=== PATIENT | female | born 1950 | race African-American/Black ===

== ENCOUNTER 2021-11-26 10:53 | Day surgery (SDC) | payer MEDICARE, OTHER ==
[2021-11-26] MEDS ORDERED: LIDOCAINE HCL 2% 100 MG/5 ML IJ ONE (10:54)
[2021-11-26] MEDS ORDERED: Decadron 4 MG INJ IV ONE (10:54)
[2021-11-26] MEDS ORDERED: DIPRIVAN 200 MG/20 ML IV ONE (13:04)
[2021-11-26] MEDS ORDERED: Lactated Ringers 1,000 ML IV ONE (13:24)
--- NOTE | 2021-11-26 14:39 | XRAY ---
Indication: Left C2-C5 MBB. Intraoperative fluoroscopy provided for 45 seconds. 4 digital spot images submitted for interpretation demonstrates posterior needle tips projecting over the expected left C2-C5 nerve roots. Correlate with intraoperative findings/report.
--- NOTE | 2021-11-26 15:08 | XRAY ---
45 seconds fluoroscopy time in surgery for left C2-C5 MBB.
== END 2021-11-26 13:40 | disposition home or self-care (01) ==
LOC: SDC-PAIN 10:53
PROVIDERS: ATTEND Psychiatry & Neurology Pain Medicine
DX: M47.812 Spondylosis without myelopathy or radiculopathy, cervical region (principal); E11.9 Type 2 diabetes mellitus without complications; Z79.899 Other long term (current) drug therapy
CPT/HCPCS: 64490; 64491; 64492; 72040; 77002; 82947; J1100; J2704

== ENCOUNTER 2021-12-31 09:48 | Day surgery (SDC) | payer MEDICARE, OTHER ==
[2021-12-31] MEDS ORDERED: Xylocaine-Mpf 2% 5 Ml Vial ONE ×2 (11:16)
[2021-12-31] MEDS ORDERED: DIPRIVAN 200 MG/20 ML IV ONE (11:16)
[2021-12-31] MEDS ORDERED: Lactated Ringers 1,000 ML IV ONE (11:24)
--- NOTE | 2021-12-31 12:40 | XRAY ---
Indication: Right C2-C5 MBB. Intraoperative fluoroscopy provided for 19 seconds. 2 digital spot image submitted for interpretation demonstrates posterior needle tips projecting over the expected right C2-C5 nerve roots. Correlate with intraoperative findings/report.
--- NOTE | 2021-12-31 14:06 | XRAY ---
19 seconds fluoroscopy time in surgery for right C2-C5 MBB.
== END 2021-12-31 11:45 | disposition home or self-care (01) ==
LOC: SDC-PAIN 09:48
PROVIDERS: ATTEND Psychiatry & Neurology Pain Medicine
DX: M47.812 Spondylosis without myelopathy or radiculopathy, cervical region (principal); E11.9 Type 2 diabetes mellitus without complications; Z79.899 Other long term (current) drug therapy
CPT/HCPCS: 72040; 77002; 82947; J2704